=== PATIENT | male | born 1945 | race Caucasian/White ===

== ENCOUNTER 2019-07-28 05:44 | Outpatient (RCR) | payer MEDICARE, OTHER ==
--- NOTE | 2019-07-24 08:11 | HISTORY AND PHYSICAL ---
DATE OF SERVICE: EGD HISTORY AND PHYSICAL HISTORY OF PRESENT ILLNESS: The patient is a 73-year-old white male who has a history of coronary artery disease and pacemaker placement for sick sinus syndrome. Pacemaker interrogation in February, it was noted that he was having asymptomatic atrial fibrillation. His bush hog operator, Dr. Martinez placed him on Xarelto 20 mg at that time. He noted an episode of nausea with hematemesis. He reported significant volume in April. He did not tell anyone about it and only happened once. Since that time, he has been having some intermittent epigastric and periumbilical abdominal discomfort, last 20 to 30 minutes, does not wake him up from sleep, has not been associated with melena, most often happens an hour or 2 after evening meal. He reports compliance with long-term Prevacid [id number] 15 mg daily. In early April for accelerating angina, he underwent placement of 2 cardiac stents and in the right coronary artery, vein graft. At that time, he was started on Effient twice daily and his aspirin was discontinued. He has noted some increased purpura and has had some occasional small volume bleeding from the right naris. He has had no chest discomfort since that time with stable chronic fatigue. He has had no orthopnea, PND and denies any change in weight. PHYSICAL EXAMINATION: GENERAL: Revealed a white male, did not appear to be in acute distress. He did not appear to be significantly pale. VITAL SIGNS: Weight was stable at 240 pounds, blood pressure 148/76 at the beginning of interview, 130/70 at the end. HEENT: Unremarkable. CHEST: Clear. CARDIOVASCULAR: Reveals a regular rate and rhythm with a soft 1 to 2/6 systolic ejection murmur heard best at left lower sternal border without evidence for pulsus, parvus or tardus. No S3 or S4 were noted. ABDOMEN: Soft, supple without mass, organomegaly or tenderness. No evidence for abdominal aortic aneurysm was noted to palpation. No bruits noted. EXTREMITIES: Reveal no cyanosis, clubbing or edema. ASSESSMENT AND PLAN: History of significant hematemesis, on Xarelto and Effient. He was advised as he is only 3 months out from stent placement to continue Effient, but discontinue Xarelto and he is being set up for EGD evaluation for further investigation. He will continue Prevacid, currently at 15 mg dose. No other medication changes recommended. Medications and electronic medical record were reviewed. The patient's questions were answered, little over 25 minutes care time spent today and did not include the staff time setting up the procedure. Further recommendations will be pending EGD evaluation. The patient was also sent for a CBC to rule out underlying anemia. Job ID: [id number] DocumentID: [id number] Dictated Date: 07/23/2019 17:34:59 Wire Temperer Date: 07/23/2019 18:42:45 Dictated By: ELLA JON MD
[~2019-07-28] VITALS: Ht 180.3 cm; Wt 109.1 kg
[~2019-07-28 05:44] MED LIST: AC500T PO; AMLO5TAB9 PO; ASCO-281 PO; ASCO100T6 PO; ASPI-731 PO; CHOL200025 PO; CHOL20003 PO; DIPH60LI PO; DOXA8TAB73 PO; FENO135C PO; FURO40TA4 PO; HYDR25TA4 PO; LANS15CA PO; LANS15TA10 PO; NF-MAG64T PO; NFNEB10T PO; OMG1KC PO; PRAS10TA10 PO; PRAV20TA3 PO; RIVA20TA PO; SLOW-MAG64 M1 PO; SOTA80TA62 PO; TELM80TA3 PO; TELM80TA8 PO; TMSL.4C PO
== END 2019-07-28 15:14 | disposition home or self-care (01) ==
LOC: PREOP 05:44
PROVIDERS: ATTEND Internal Medicine
DX: Z01.818 Encounter for other preprocedural examination (principal); Z11.59 Encounter for screening for other viral diseases
CPT/HCPCS: 87635

== ENCOUNTER 2019-07-31 06:52 | Day surgery (SDC) | payer MEDICARE, OTHER ==
[2019-07-31] VITALS (11 sets, daily range): BP systolic 129–160; BP diastolic 69–85
[~2019-07-31] VITALS: Ht 180.3 cm; Wt 109.1 kg
[2019-07-31] MEDS ORDERED: D5 LR IV SOLUTION 1,000 ML IV ONE (07:13)
[2019-07-31] MEDS ORDERED: D5 LR IV SOLUTION 1,000 ML IV STA (07:15)
[2019-07-31] MEDS ORDERED: LIDOCAINE JELLY 2% 6 ML SYRINGE MM PRN (07:15)
[2019-07-31] MEDS ORDERED: fentaNYL INJECTION 100 MCG/2 ML AMP IVP ONE (07:15)
[2019-07-31] MEDS ORDERED: HURRICAINE EXT TUBE (BENZOCAINE) XX PRN (07:15)
[2019-07-31] MEDS ORDERED: LIDOCAINE JELLY 2% 6 ML SYRINGE ONE (07:30)
[2019-07-31] MEDS ORDERED: fentaNYL INJECTION 100 MCG/2 ML AMP ONE (07:31)
[2019-07-31] MEDS ORDERED: MIDAZOLAM 5 MG/5 ML (VERSED) VIAL ONE (07:31)
[2019-07-31] MEDS ORDERED: HURRICAINE EXT TUBE (BENZOCAINE) ONE (07:31)
--- NOTE | 2019-07-31 07:37 | Pre-Op Note & Conscious Sedat ---
Pre-Operative Progress Note H&P Reviewed The H&P was reviewed, patient examined and no changes noted. Date H&P Reviewed: Jul 31, 2019 Time H&P Reviewed: 07:25 Conscious Sedation Pre-Proced ASA Score 2 For ASA 3 and 4: Consider anesthesia and medical clearance. Also, for patients with a history of failed moderate sedation consider anesthesia. Airway Lungs Heart ASA score ASA 1: a normal healthy patient ASA 2: a patient with a mild systemic disease (mid diabetes, controlled hypertension, obesity ASA 3: a patient with a severe systemic disease that limits activity (angina, COPD, prior Myocardial infarction) ASA 4: a patient with an incapacitating disease that is a constant threat to life (CHF, renal failure) ASA 5: a moribund patient not expected to survive 24 hrs. (ruptured aneurysm) ASA 6: a declared brain- patient whose organs are being harvested. For emergent operations, add the letter E after the classification Mallampati Classification Grade 2 Sedation Plan Analgesia, Amnesia, Plan communicated to team members, Discussed options with patient/fam, Discussed risks with patient/fam The patient is an appropriate candidate to undergo the planned procedure, sedation, and anesthesia. The patient immediately re-assessed prior to indication. ELLA JON MD Jul 31, 2019 07:37
[2019-07-31] MEDS: MIDAZOLAM 5 MG/5 ML (VERSED) VIAL IV PRN ×2 (07:39→07:43)
--- NOTE | 2019-07-31 12:54 | OPERATIVE REPORT ---
DATE OF SERVICE: EGD SUMMARY INDICATION FOR THE PROCEDURE: Epigastric pain with hematemesis. The patient is at higher risk for continued bleeding due to dual antiplatelet therapy for paroxysmal atrial fibrillation and coronary artery stent placement 3 months ago. DESCRIPTION OF PROCEDURE: The patient was placed in left lateral decubitus position. The endoscope was inserted into the oral cavity and under direct visualization, esophagus was intubated. The endoscope was passed down the esophagus, stomach and into the second portion of the duodenum. Careful inspection was made as the endoscope was withdrawn. The patient tolerated the procedure well. FINDINGS: The posterior pharynx, arytenoid aperture, true and false vocal folds were unremarkable to gross inspection. Proximal, mid and distal esophagus were unremarkable. A small hiatal hernia was present without evidence for erosive esophagitis. The cardia, fundus and antrum of the stomach were unremarkable as were the pylorus, pyloric channel, duodenal bulb and second portion of duodenum with no potential bleeding sites being identified. ASSESSMENT AND PLAN: Unremarkable EGD except for small hiatal hernia without evidence for erosive esophagitis or potential bleeding sites. 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 The patient had been instructed to continue Effient and go ahead and resume Xarelto 20 mg daily. Continue to monitor his stools. Should he have any problems with dental infection in the future, was advised that he first try penicillin and avoid Clindamycin due to likely gastrointestinal intolerance of the antibiotic. Job ID: [id number] DocumentID: [id number] Dictated Date: 07/31/2019 08:53:59 Photocopy Operator Date: 07/31/2019 12:54:40 Dictated By: ELLA JON MD [facility]
== END 2019-07-31 08:50 | disposition home or self-care (01) ==
LOC: ENDO 06:52
PROVIDERS: ATTEND Internal Medicine
DX: K92.0 Hematemesis (principal); K44.9 Diaphragmatic hernia without obstruction or gangrene; I25.10 Atherosclerotic heart disease of native coronary artery without angina pectoris; I48.0 Paroxysmal atrial fibrillation; Z95.5 Presence of coronary angioplasty implant and graft; Z79.02 Long term (current) use of antithrombotics/antiplatelets